=== PATIENT | male | born 1980 | race Caucasian/White ===

== ENCOUNTER → 2018-11-28 | Day surgery (SDC) | payer OTHER, MEDICAID ==
[~2018-11-28] MED LIST: ALBUTEROL 0.083% (NEB) 2.5 MG/3 ML AMP HHN; CEFAZOLIN 1 GM INJ; DESFLURANE 15 MIN; DIPHENHYDRAMINE 50 MG INJ IV; FENTAnyl 50 MCG/ML VIAL; FENTAnyl 50 MCG/ML VIAL IV; GLYCOPYRROLATE 0.4 MG INJ; HYDROmorphONE 1 MG/5 ML IV SYRINGE IV; LABETALOL HCL 20MG INJ; LIDOCAINE 100 MG SYRINGE; MEPERIDINE 25 MG INJ IV; METOCLOPRAMIDE 10 MG INJ IV; MIDAZOLAM 1 MG/ML 2 ML INJ; NEOSTIGMINE 10 MG INJ; ONDANSETRON 4 MG INJ IV; POVIDONE IODINE 10% 28.4 GM OINT; PROPOFOL 200 MG INJ; PROPOFOL 40 ML; ROCURONIUM 50 MG INJ; ROPIVACAINE 0.5 % 30 ML VIAL; SUCCINYLCHOLINE CHLORIDE 100 MG/5 ML SYG IV; morphine 2 MG INJ IV
[2018-11-28] MEDS: ROPIVACAINE 0.5 % 30 ML VIAL (11:16)
[2018-11-28] MEDS: THROMBIN(HUM PLAS)/FIBRINOG/CA 5 ML VIAL TOP (12:35)
[2018-11-28] MEDS: POLYMYXIN/BACITRACIN 1L IRRIG (12:35)
== END | disposition home or self-care (01) ==
LOC: SDS 07:06
DX: S83.511D Sprain of anterior cruciate ligament of right knee, subsequent encounter (principal); X58.XXXD Exposure to other specified factors, subsequent encounter; M23.41 Loose body in knee, right knee; M93.261 Osteochondritis dissecans, right knee; E66.9 Obesity, unspecified; Z68.33 Body mass index [BMI] 33.0-33.9, adult
CPT/HCPCS: 29886; 82306